=== PATIENT | male | born 2000 | race Two or more races ===

== ENCOUNTER 2025-07-15 09:31 | Emergency (ER) | payer SELFPAY ==
[2025-07-15] MEDS: Lidocaine 2% with EPINEPHrine 1:100,000 20 ML MDV INJECT ONE (11:00)
[2025-07-15] MEDS: Acetaminophen/HYDROcodone 325-5 MG Tab PO ONE (11:19)
[2025-07-15] MEDS: Lidocaine 2% with EPINEPHrine 1:100,000 20 ML MDV ONE (11:21)
== END 2025-07-15 11:22 | disposition home or self-care (01) ==
LOC: KA.ED 09:33
DX: L02.31 Cutaneous abscess of buttock (principal); Z88.0 Allergy status to penicillin; Z88.1 Allergy status to other antibiotic agents; Z91.018 Allergy to other foods
CPT/HCPCS: 10060; 99282-25; A9270-GY; J2004